=== PATIENT | female | born 1995 | race Two or more races ===

== ENCOUNTER 2020-08-22 01:55 | Inpatient (IN) | payer OTHER ==
[2020-08-22] MEDS ORDERED: BUTORPHANOL TARTRATE 1 MG/ML VIAL IVPB ONE (05:00)
[2020-08-22] MEDS ORDERED: PROMETHAZINE HCL 25 MG/1 ML VIAL IVPB ONE (05:00)
[2020-08-22 05:02] LABS: BASO % 0.8 % (0-2.0); EOS % 0.4 % (0-4.5); HEMOGLOBIN 11.2 GM/dL (10.7-15.3); LYMPH % 14.6 % (8-40); MCH 30.6 pg (25.7-33.7); MCHC 33.8 g/dl (32.0-36.0); MEAN CELL VOLUME 90.6 fl (80-96); MONO % 7.9 % (3.8-10.2); NEUT % 76.3 % (42.8-82.8); PLATELET COUNT 226 K/MM3 (134-434); RBC 3.65 M/mm3 (3.60-5.2); RDW 14.4 % (11.6-15.6); WHITE BLOOD COUNT 11.9 K/mm3 (4.0-10.0)
[2020-08-22 05:10] LABS: INR 0.92 (0.83-1.09); PROTHROMBIN TIME (PATIENT) 11.2 SEC (9.7-13.0)
[2020-08-22 05:22] LABS: CALCIUM 8.9 mg/dL (8.5-10.1)
[2020-08-22 05:23] LABS: BLOOD UREA NITROGEN 10.5 mg/dL (7-18)
[2020-08-22 05:26] LABS: CREATININE 0.7 mg/dL (0.55-1.3)
[2020-08-22] MEDS ORDERED: BUTORPHANOL TARTRATE 2 MG/ML VIAL ONE (05:26)
[2020-08-22] MEDS ORDERED: PROMETHAZINE HCL 25 MG/1 ML VIAL ONE (05:26)
[2020-08-22 05:58] VITALS: BMI 23.6
[2020-08-22] MEDS: ELECTROLYTE-148 SOLN 1,000 ML IV SCH (06:01)
[2020-08-22] MEDS ORDERED: FENTANYL/BUPIVACAINE/NS/PF - PCEA - 50 ML DISP.SYRIN EP ONE ×2 (08:15→13:41)
[2020-08-22] MEDS ORDERED: PCA PUMP NR ONE ×2 (08:16→16:07)
[2020-08-22] MEDS ORDERED: BUPIVACAINE HCL/PF 0.25% (2.5MG/ML) 10 ML VIAL ONE (08:41)
[2020-08-22] MEDS: FENTANYL/BUPIVACAINE/NS/PF - PCEA - 50 ML DISP.SYRIN EP SCH ×2 (09:00→13:50)
[2020-08-22] MEDS ORDERED: NALOXONE HCL 0.4 MG/ML VIAL IVPUSH PRN (09:19)
[2020-08-22] MEDS ORDERED: OXYTOCIN 30 UNITS in 0.9% NS 30 UNIT/500 ML INFUS.BAG IVPB SCH (13:00)
[2020-08-22] MEDS ORDERED: OXYTOCIN 30 UNITS in 0.9% NS 30 UNIT/500 ML INFUS.BAG IVPB ONE (16:08)
[2020-08-22] MEDS ORDERED: SIMETHICONE 80 MG TAB.CHEW (FP) PO PRN (17:58)
[2020-08-22] MEDS ORDERED: OXYTOCIN 20 UNITS in 0.9% NS 20 UNIT/1,000 ML INFUS.BAG IV SCH (18:00)
[2020-08-22] MEDS ORDERED: ACETAMINOPHEN 325 MG TABLET (FP) ONE (19:49)
[2020-08-22] MEDS ORDERED: IBUPROFEN 600 MG TABLET (FP) PO ONE (19:49)
[2020-08-22] MEDS: IBUPROFEN 600 MG TABLET (FP) PO PRN (19:50)
[2020-08-22] MEDS: ACETAMINOPHEN 325 MG TABLET (FP) PO PRN (19:50)
[2020-08-23] MEDS: ELECTROLYTE-148 SOLN 1,000 ML IV SCH (05:13)
[2020-08-23 09:26] LABS: BASO % 0.5 % (0-2.0); EOS % 0.8 % (0-4.5); HEMATOCRIT 30.5 % (32.4-45.2); HEMOGLOBIN 10.2 GM/dL (10.7-15.3); MCH 30.7 pg (25.7-33.7); MCHC 33.3 g/dl (32.0-36.0); MEAN CELL VOLUME 92.3 fl (80-96); MONO % 7.7 % (3.8-10.2); PLATELET COUNT 201 K/MM3 (134-434); RBC 3.31 M/mm3 (3.60-5.2); RDW 14.4 % (11.6-15.6); WHITE BLOOD COUNT 15.8 K/mm3 (4.0-10.0)
[2020-08-23] MEDS ORDERED: BISACODYL 10 MG SUPP.RECT RC PRN (17:58)
[2020-08-23] MEDS: ACETAMINOPHEN 325 MG TABLET (FP) PO PRN (19:54)
[2020-08-23] MEDS: IBUPROFEN 600 MG TABLET (FP) PO PRN (19:55)
[2020-08-24 14:19] VITALS: BP 109/75; PULSE 98; TEMP 98.4
== END 2020-08-24 15:15 | disposition home or self-care (01) | DRG 560 ==
LOC: JDEL 01:55 → JLDR 04:05 → J3W 21:12
PROVIDERS: ADMIT Student in an Organized Health Care Education/Training Program; ATTEND Student in an Organized Health Care Education/Training Program
PROC: 10E0XZZ Delivery of Products of Conception, External Approach (ICD-10-PCS; principal; 2020-08-22)
PROC: 0W8NXZZ Division of Female Perineum, External Approach (ICD-10-PCS; 2020-08-22)
PROC: 0KQM0ZZ Repair Perineum Muscle, Open Approach (ICD-10-PCS; 2020-08-22)
PROC: 10907ZC Drainage of Amniotic Fluid, Therapeutic from Products of Conception, Via Natural or Artificial Opening (ICD-10-PCS; 2020-08-22)
DX: O32.6XX0 Maternal care for compound presentation, not applicable or unspecified (principal); O70.1 Second degree perineal laceration during delivery; Z3A.39 39 weeks gestation of pregnancy; Z37.0 Single live birth
CPT/HCPCS: 36415; 59025; 59409; 80048; 85025; 85610; 85730; 86780; 86850; 86900; 86901; C9803; U0003; U0005

== ENCOUNTER 2021-09-09 04:40 | Day surgery (SDC) | payer OTHER ==
[2021-09-09 10:02] VITALS: BMI 19.3
[2021-09-09] MEDS ORDERED: MIDAZOLAM HCL 2 MG/2 ML SINGLE DOSE VIAL ONE (15:23)
[2021-09-09] MEDS ORDERED: ONDANSETRON 4 MG/2 ML VIAL ONE (17:14)
[2021-09-09] MEDS ORDERED: ONDANSETRON 4 MG/2 ML VIAL IVPB ONE ×2 (17:15→17:20)
[2021-09-09 18:19] VITALS: BP 121/60; PULSE 61; TEMP 97.6
== END 2021-09-09 18:10 | disposition home or self-care (01) ==
LOC: JASU-SURG 04:40
PROVIDERS: ATTEND Urology
PROC: 0TF3XZZ Fragmentation in Right Kidney Pelvis, External Approach (ICD-10-PCS; principal; 2021-09-09 15:30)
DX: N20.0 Calculus of kidney (principal)
CPT/HCPCS: 81025